=== PATIENT | male | born 1960 | race American Indian/Alaskan Native ===

== ENCOUNTER 2016-09-23 12:58 | Outpatient (CLI) | payer BC ==
--- NOTE | 2016-09-23 13:55 | XRay Report ---
ROUTINE CHEST, TWO VIEWS: HISTORY: Cough. The trachea, heart, mediastinal contour, lung menjivar and bony thorax are unremarkable. IMPRESSION: Unremarkable chest x-ray. No significant change since 01/02/16.
== END 2016-09-23 12:59 | disposition home or self-care (01) ==
LOC: SPVIMAG 12:58
PROVIDERS: ATTEND Family Medicine Adult Medicine
DX: J40 Bronchitis, not specified as acute or chronic (principal)
CPT/HCPCS: 71020